=== PATIENT | female | born 1945 | race Caucasian/White ===

== ENCOUNTER 2022-04-15 09:24 | Emergency (ER) | payer OTHER, MEDICARE ==
--- OUTSIDE RECORDS SUMMARY | 2022-04-15 09:27 | XMS REPORT | Continuity of Care Document ---
:1945 Author Organization [facility] t Address [address] [place] [address] Care Team Providers Name Role Phone Unavailable Unavailable Unavailable Payers Payer Name Policy Type Policy Number Effective Date Expiration Date S ource Problems Condition Condition Condition Status Onset Resolution Last Treating Co mments Source Name Details Category Date Date Treatment Clinician Date TIA TIA Disease Active [facility] (transient (transient 5-19 [facility] ischemic ischemic 00:00: Medica l attack) attack) 00 Center Allergies, Adverse Reactions, Alerts Allergy Allergy Status Severity Reaction(s) Onset Inactive Treating Comm ents Source Name Type Date Date Clinician naproxen DA Active [facility] sodium 12-29 [place] 00:00: Orthope 00 dic [facility] Horse/Eq DA [facility] uine 12-29 [place] Containi 00:00: Orthope ng 00 dic Products Hospita l Naproxen Propensi Active [facility] adverse 00:00: Medical reaction 00 Center s Penicill Propensi Active [facility] ty to 5-19 [facility] adverse 00:00: Medical reaction 00 Center s Tetanus Propensi Active [facility] Vaccines ty to 5-19 [facility] And adverse 00:00: Medical Toxoid reaction 00 [place] [facility] NAPROXEN Allergy Active [facility] 5[facility]19 [facility] 00:[facility]: Medical 00 [place] PENICILL Allergy Active [facility] INS 5-19 [facility] 00:00: Medical 00 [place] TETANUS Allergy Active [facility] VACCINES 5-19 [facility] AND 00:00: Medical TOXOID 00 [place] naproxen DA Active [facility] 9-11 [place] 00:00: Orthope 00 dic Hospita l naproxen DA Active [facility] sodium 9-11 [facility] 00:[facility] 00 l of [place] Horse/Eq DA Active [facility] uine -11 [facility] Containi 00:00: Hospita ng 00 l of Products [place] Tetanus DA Active [facility] Diphther 04-20 [facility] 00:00: Hospita Tox,Adul 00 l of t [place] Social History Social Habit Start Date Stop Date Quantity Comments Source Alcohol intake 2015-12-30 2015-12-[address] [facility] [address] [facility] 00:00:00 00:00:00 [facility] Sex Assigned At [birth year] [facility] k[facility] 00:00:00 00:00:00 [facility] Smoking Status Start Date Stop Date Source [facility]ations Ordered Filled Start Stop Current Ordering Indication Dosage Frequency Signature Comments Components Source Medication Medication Date Date Medication? Clinician (SIG) Name Name ascorbic Yes 500mg QD Take [address] [facility] [address] acid 5-22 mg by [facility] (VITAMIN C) 16:18: mouth Medic al 500 MG 31 daily. [place] tablet calcium Yes 1{tbl} QD Take [address] [facility] citrate-vit 5-22 tablet by [facility] es payne D 16:18: mouth Medical (CITRACAL+D 31 daily. [place] ) 315-200 mg-unit per tablet cycloSPORIN Yes 1[drp] Q.5D [address] [facility] E 5-22 (two) [facility] (RESTASIS) 16:18: times Medica l 0.05 % 31 daily. [place] ophthalmic emulsion omega-3 Yes 2g QD Take [address] [facility] fatty 5-22 by mouth [facility] acids-fish 16:18: daily. Medic al oil 31 Center 340-1,000 mg Cap per capsule multivit-ir Yes Take by [facility] on-min-foli 5-22 mouth. [facility] c acid 16:18: Medical 3,500-18-0. 31 Center 4 unit-mg-mg Chew Lactobacill Yes 1{tbl} Q.5D Take [address] us 5-22 tablet by [facility] acidoph-L.b 16:18: mouth 2 Med ical ulgar 31 (two) Center (FLORANEX) times 1 million daily. cell Tab per tablet omeprazole Yes 40mg QD Take [address] (PRILOSEC) 5-22 by mouth [facility] 40 MG 16:18: daily. Medical capsule 31 Center levothyroxi Yes 50ug Take [address] [facility] ne 5-22 mcg by [facility] (SYNTHROID, 16:18: mouth Medic al LEVOTHROID) 31 Every Center 50 MCG morning on tablet an empty stomach. Procedures This patient has no known procedures. Results Test Description Test Time Test Comments Results Result Comments Source BASIC METABOLIC PANEL 2018-12-30 07:07:00 Test Item Value Reference Range Interpretation Comme nts SODIUM (test code = NA) 136 mmol/L 136-145 N POTASSIUM (test code = K) 4.1 mmol/L 3.5-5.1 N CHLORIDE (test code = CL) 100.0 mmol/L 98-107 N CARBON DIOXIDE (test code = 25.7 mmol/L 21-32 N CO2) GLUCOSE (test code = GLU) 116 mg/dL 70-110 H BLOOD UREA NITROGEN (test code 10 mg/dL 7-18 N = BUN) GLOMERULAR FILTRATION RATE 62.6 >60 U nit of measure: mL/min/1.73 (test code = GFR) [id number] Range:Healthy Adults >90 mL/m in/1.73 m2 For Chronic Kidney Disease: Stage II Mild Decreas e in GFR 60-90 Stage III Moder ate Decrease in GFR 30-59 St age IV Severe Decrease in GFR 15-29 Stage V Kidney Failure <15 CREATININE (test code = CREAT) 0.88 mg/dL 0.55-1.30 N CALCIUM (test code = CA) 8.6 mg/dL 8.2-10.1 N HGB [id number] 05:46:00 Test Item Value Reference Range Interpretation Comments HEMOGLOBIN (test code = HGB) 11.4 g/dL 12-16 L HEMATOCRIT (test code = HCT) 34.4 % 37-47 L - XR CHEST 2 [id number] 07:29:00 Patient Name: EYAD MARIO Unit No: [id number] EXAMS: CPT CODE: [id number] XR CHEST 2 [id number] PA AND LATERAL CHEST DIAGNOSIS: No evidence for active disease. COMMENT: COMPARISON: September 11, 2009 The cardiac size is within normal limits. No mediastinal masses are seen. The lungs are free of infiltrates. There is a thoracolumbar scoliosis convex right in the thorax and left in the lumbar spine with degenerative changes. at 0729 Reported and signed by: Adam Rivera MD CC: Giancarlo Andersen M.D. Technologist:Cindi Thornton RT.(R) Transcribed D/ (728) [facility] NAME: EYAD MARIO [address] [facility] PHYS: Giancarlo Vallejo MD : 1945 AGE: 73 SEX: F [place] [address] LOC: MARI PHONE #: [phone] EXAM DATE: 12/09/2018 STATUS: PRE IN FAX #: [phone] RAD #: D/C DT PAGE 1 Signed Report Patient Name: CLAUDIA MARIO Unit No: [id number] EXAMS: CPT CODE: [id number] XR CHEST 2 V 42070 (Continued) Orig Print D/T: S: 12/10/2018 (0733) [facility] [id number] [facility] MD : 1945 AGE: 73 SEX: F [place] [address] LOC: MARI PHONE #: [phone] EXAM DATE: 12/09/2018 STATUS: PRE IN FAX #: [phone] RAD #: D/C DT PAGE 2 Signed Report COMPREHENSIVE METABOLIC [id number] 18:25:00 Test Item Value Reference Range Interpretation Comments SODIUM (test code = NA) 135 mmol/L 136-145 L POTASSIUM (test code = 4.7 mmol/L 3.5-5.1 N K) CHLORIDE (test code = 97.0 mmol/L 98-107 L CL) CARBON DIOXIDE (test 30.1 mmol/L 21-32 N code = CO2) GLUCOSE (test code = 92 mg/dL 70-110 N GLU) BLOOD UREA NITROGEN 10 mg/dL 7-18 N (test code = BUN) GLOMERULAR FILTRATION 72.0 >60 Unit o f measure: RATE (test code = GFR) mL/mi n/1.73 [id number] Range:Healthy Adults >90 mL/min/1.73 m2 For Chronic Kidney Disease: Stage II Mild Decrease i n GFR 60-90 Stage III Moderate Decrea se in GFR 30-59 St age IV Severe Decre ase in GFR 15-29 St age V Kidney Failur e <15 CREATININE (test code = 0.78 mg/dL 0.55-1.30 N CREAT) TOTAL PROTEIN (test 7.4 g/dL 6.4-8.2 N code = PROT) ALBUMIN (test code = 4.2 g/dL 3.4-5.0 N ALB) GLOBULIN (test code = 3.2 g/dL 2.2-4.2 N GLOB) ALBUMIN/GLOBULIN RATIO 1.3 0.7-2.0 N (test code = A/G) CALCIUM (test code = 9.7 mg/dL 8.2-10.1 N CA) BILIRUBIN TOTAL (test 0.32 mg/dL 0.2-1.00 N code = BILT) SGOT/AST (test code = 22.0 U/L 15-37 N AST) SGPT/ALT (test code = 25.0 U/L 12-78 N Please note new ALT) normal range. ALKALINE PHOSPHATASE 74 U/L 46-116 N TOTAL (test code = ALKP) URINALYSIS [id number] 17:47:00 Test Item Value Reference Range Interpretation Comments UA COLOR (test code = COLU) YELLOW YELLOW UA APPEARANCE (test code = HAZY CLEAR APPU) UA GLUCOSE DIPSTICK (test code NEGATIVE NEGATIVE = DGLUU) UA BILIRUBIN DIPSTICK (test NEGATIVE NEGATIVE code = BILU) UA KETONE DIPSTICK (test code NEGATIVE mg/dL NEG = KETU) UA SPECIFIC GRAVITY (test code <=1.005 1.003-1.035 = SGU) UA BLOOD DIPSTICK (test code = NEGATIVE NEGATIVE BRYAN) UA PH DIPSTICK (test code = 6.5 >6.5 ANAND) UA PROTEIN DIPSTICK (test code NEGATIVE mg/dL NEG = PROU) UA UROBILINIOGEN DIPSTICK 0.2 mg/dL NORM (test code = URO) UA NITRITE DIPSTICK (test code NEGATIVE NEG = ITALO) UA LEUKOCYTE ESTERASE DIPSTICK TRACE NEGATIVE A (test code = LEUU) UA WBC (test code = WBCU) <5 /HPF 0-2 UA RBC (test code = RBCU) 0-2 /HPF 0-2 UA EPITHELIAL CELLS (test code FEW /HPF 0-2 = EPIU) UA BACTERIA (test code = BACU) 1+ /HPF NONE A CBC W/AUTO [id number] 17:18:00 Test Item Value Reference Range Interpretation Comments WHITE BLOOD CELL (test code = WBC) 5.9 K/mm3 5.8-11.0 N RED BLOOD CELL (test code = RBC) 4.51 M/mm3 4.2-5.4 N HEMOGLOBIN (test code = HGB) 13.5 g/dL 12-16 N HEMATOCRIT (test code = HCT) 39.3 % 37-47 N MEAN CELL VOLUME (test code = MCV) 87 fL 80-98 N MEAN CELL HGB (test code = MCH) 29.9 pg 27-34 N MEAN CELL HGB CONCENTRATION (test 34.4 g/dL 30.8-34.1 H code = MCHC) RED CELL DISTRIBUTION WIDTH (test 13.1 % 11-16 N code = RDW) PLT (test code = PLT) 243 K/mm3 130-400 N MEAN PLATELET VOLUME (test code = 9.9 fL 8.9-12.1 N MPV) NEUTROPHIL % (test code = NT%) 45.9 % 45-70 N LYMPHOCYTE % (test code = LY%) 42.6 % 20-40 H MONOCYTE % (test code = MO%) 9.3 % 3-10 N EOSINOPHIL % (test code = EO%) 1.7 % 1-5 N BASOPHIL % (test code = BA%) 0.3 % 0.0-1.1 N NEUTROPHIL # (test code = NT#) 2.73 K/mm3 2.00-7.50 N LYMPHOCYTE # (test code = LY#) 2.53 K/mm3 1.50-4.00 N MONOCYTE # (test code = MO#) 0.55 K/mm3 0.2-0.8 N EOSINOPHIL # (test code = EO#) 0.10 K/mm3 0.04-0.4 N BASOPHIL # (test code = BA#) 0.02 K/mm3 0.02-0.10 N MANUAL DIFF REQUIRED (test code = NO MANUAL DIFF MDIFF) NUCLEATED RED BLOOD CELL (test 0 % 0-0 N code = NRBC)
--- NOTE | 2022-04-15 11:12 | RAD REPORT ---
EXAM DESCRIPTION: CT - Head Brain Wo Cont - 04/15/2022 10:44 am CLINICAL HISTORY: pain, headache COMPARISON: Head Brain W/Wo Con dated 03/21/2020 TECHNIQUE: Axial 5 mm thick images of the head were obtained without IV contrast. All CT scans are performed using dose optimization technique as appropriate and may include automated exposure control or mA/KV adjustment according to patient size. FINDINGS: No intracranial hemorrhage, mass, edema or shift of mid-line structures. No acute cortical based infarction. No cortical edema or sulcal effacement seen. Atrophy changes are present similar t o the 2019 study. No abnormal extra-axial fluid collections. Ventricles are in proportion to the amou nt of volume loss. Cerebral white matter chronic ischemic changes are present also similar to the com parison study. Arterial tree calcifications are present. Mastoid air cells and visualized portions of the paranasal sinuses are clear. No acute bony findings. IMPRESSION: Negative noncontrast CT study for acute finding. Atrophy and chronic ischemic changes are present similar to the 2019 study.
[2022-04-15] MEDS ORDERED: MECLIZINE HCL 12.5 MG TAB ONE (11:28)
[2022-04-15 11:32] LABS: Absolute Lymphocytes (CBC) 1.2 K/uL (0.7-4.9); Hematocrit 41.9 % (36.0-45.0); Lymphocytes % 19.5 % (15.3-44.8); MCV 88.9 fL (80-100); MPV 7.1 fL (7.6-11.3); RBC Red Blood Cell Count 4.72 M/uL (3.86-4.86)
[2022-04-15 11:38] LABS: Protime INR 1.13
[2022-04-15 11:49] LABS: Albumin 4.3 g/dL (3.4-5.0); Bilirubin Direct 0.1 mg/dL (0-0.2); Bilirubin Total 0.5 mg/dL (0.2-1.0); Magnesium 2.4 mg/dL (1.8-2.4); Potassium 4.2 mmol/L (3.5-5.1); Protein, Total 8.5 g/dL (6.4-8.2)
--- NOTE | 2022-04-15 12:42 | RAD REPORT ---
EXAM DESCRIPTION: RAD - Chest Single View - 04/15/2022 12:36 pm CLINICAL HISTORY: dizzyness COMPARISON: Chest Single View dated 12/27/2015; Chest Single View dated 12/24/2015 FINDINGS: Lines: None. Lungs: No evidence of edema or pneumonia. Pleural: No significant pleural effusions or pneumothorax. Cardiac: The heart size is within normal limits. Mediastinum: Within normal limits. Bones: No acute fractures. Scoliosis. Other: None IMPRESSION: No acute cardiopulmonary disease.
--- NOTE | 2022-04-15 14:10 | RAD REPORT ---
EXAM DESCRIPTION: MRI - Brain Wo Cont - 04/15/2022 1:53 pm CLINICAL HISTORY: numbness, dizziness COMPARISON: Head Brain Wo Cont dated 04/15/2022 TECHNIQUE: Sagittal T1-weighted images were obtained along with PD/heavily T2-weighted and T2-FLAIR images. Axial DWI and ADC mapping sequences were also obtained along with coronal heavily T2-weighted images were obtained. FINDINGS: No intracranial hemorrhage, mass or acute infarction. There is no edema or shift of midlin e structures. No extra-axial fluid collections. Signal voids are seen as a normal finding in the shira r intracranial vessels. Mild T2/FLAIR hyperintense signal foci within the deep white matter. Age adva nced cerebral atrophy. Mastoid air cells and paranasal sinuses are clear. IMPRESSION: No acute intracranial abnormality. Specifically, no evidence of acute infarct. 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
[2022-04-15 15:28] LABS: Thyroid Stimulating Hormone 1.71 uIU/mL (0.360-3.740)
--- NOTE | 2022-04-15 16:22 | EDPHYS ---
Physician Documentation [facility] Name: Nathan Pierce Age: 76 yrs Sex: Female : 1945 Arrival Date: 04/15/2022 Time: 09:28 Bed 17 Private MD: Obdulia Lu ED Physician Alf Gibbs HPI: 04/15 10:09 This 76 yrs old Female presents to ER via Ambulatory with complaints of Numbness Of pm1 Face, Throat Tightness. 10:09 The patient presents to the emergency department with paresthesias of the left side of pm1 upper lip. Onset: The symptoms/episode began/occurred 9 day(s) ago. Associated signs and symptoms: The patient has no apparent associated signs or symptoms, Pertinent negatives: headache, weakness, chest pain, shortness of breath. Severity of symptoms: in the emergency department the symptoms are unchanged Pain is currently a 0 / 10. Patient's baseline: Neuro: alert and fully oriented, Motor: no deficits, Ambulation: walks without assistance, Speech: normal. Current symptoms: numbness to left upper lip. The patient has experienced similar episodes in the past, a few times, today's symptoms are similar, to previous TIA 6 years ago. The patient has not recently seen a physician. Historical: - Allergies: 10:03 tetanus serum; ll1 10:03 PENICILLINS; ll1 10:03 Naproxen; ll1 - PMHx: 10:03 GERD; osteoarthritis; Hypothyroidism; Hypertension; Colonic polyps; TIA; ll1 - Immunization history:: Client reports receiving the 2nd dose of the Covid vaccine. - Social history:: Smoking status: Patient denies any tobacco usage or history of. ROS: 10:09 Constitutional: Negative for fever, chills, and weight loss, Eyes: Negative for injury, pm1 pain, redness, and discharge, ENT: Negative for injury, pain, and discharge, Cardiovascular: Negative for chest pain, palpitations, and edema, Respiratory: Negative for shortness of breath, cough, wheezing, and pleuritic chest pain, Abdomen/GI: Negative for abdominal pain, nausea, vomiting, diarrhea, and constipation, Back: Negative for injury and pain, MS/Extremity: Negative for injury and deformity, Skin: Negative for injury, rash, and discoloration. 10:09 Neuro: Positive for numbness, of the left side of upper lip, Dizziness, room spinning, Negative for headache. 10:09 All other systems are negative. Exam: 10:09 Constitutional: This is a well developed, well nourished patient who is awake, alert, pm1 and in no acute distress. Head/Face: Normocephalic, atraumatic. Cardiovascular: Regular rate and rhythm with a normal S1 and S2. No gallops, murmurs, or rubs. Normal PMI, no JVD. No pulse deficits. Respiratory: Lungs have equal breath sounds bilaterally, clear to auscultation and percussion. No rales, rhonchi or wheezes noted. No increased work of breathing, no retractions or nasal flaring. 10:09 Skin: Warm, dry with normal turgor. Normal color with no rashes, no lesions, and no evidence of cellulitis. MS/ Extremity: Pulses equal, no cyanosis. Neurovascular intact. Full, normal range of motion. 10:09 Eyes: Exam is negative for acute changes, Periorbital structures: appear normal, Pupils: no acute changes, Extraocular movements: no acute changes, Conjunctiva: normal. 10:09 ENT: Exam is negative for acute changes, Mouth: no acute changes, Lips: normal, moist, Oral mucosa: normal, pink and intact, Voice: no acute changes. 10:09 Abdomen/GI: Exam negative for acute changes, Inspection: abdomen appears normal, Palpation: abdomen is soft and non-tender, in all quadrants. 10:09 Back: Exam negative for acute changes. 10:09 Neuro: Exam negative for acute changes, Orientation: is normal, Mentation: is normal, Cranial nerves: CN II- XII are normal as tested, Motor: no acute changes, moves all fours, strength is 5/5 in all extremities, Sensation: no obvious gross deficits, Gait: is steady, at a normal pace, without difficulty. Vital Signs: 10:02 BP 180 / 102; Pulse 95; Resp 17; Temp 97.7; Pulse Ox 100% ; ll1 11:00 BP 182 / 87; Pulse 71; Resp 16; Pulse Ox 99% on R/A; tp1 12:00 BP 165 / 91; Pulse 70; Resp 18; Pulse Ox 98% on R/A; tp1 12:45 BP 149 / 97; Pulse 82; Resp 21; Pulse Ox 98% on R/A; tp1 14:00 BP 165 / 107; Pulse 68; Resp 15; Pulse Ox 99% on R/A; tp1 14:10 BP 168 / 95; Pulse 72; Resp 13; Pulse Ox 99% on R/A; tp1 14:45 BP 139 / 80; Pulse 70; Resp 16; Pulse Ox 99% on R/A; tp1 15:30 BP 154 / 55; Pulse 74; Resp 18; Pulse Ox 100% on R/A; tp1 MDM: 10:11 Patient medically screened. pm1 16:20 Data reviewed: vital signs. Data interpreted: Pulse oximetry: on room air is 100 %. pm1 Interpretation: normal. Counseling: I had a detailed discussion with the patient and/or guardian regarding: the historical points, exam findings, and any diagnostic results supporting the discharge/admit diagnosis, lab results, radiology results, the need for outpatient follow up, to return to the emergency department if symptoms worsen or persist or if there are any questions or concerns that arise at home. 04/15 10:09 Order name: Basic Metabolic Panel pm1 04/15 10:09 Order name: CBC with Diff pm1 04/15 10:09 Order name: LFT's pm1 04/15 10:09 Order name: Magnesium pm1 04/15 10:09 Order name: NT PRO-BNP pm1 04/15 10:09 Order name: PT-INR pm1 04/15 10:09 Order name: Troponin HS pm1 04/15 11:33 Order name: CBC with Automated Diff; Complete Time: 11:34 EDMS 04/15 11:38 Order name: Protime (+INR); Complete Time: 12:08 EDMS 04/15 11:49 Order name: Basic Metabolic Panel; Complete Time: 15:42 EDMS 04/15 11:49 Order name: Liver (Hepatic) Function; Complete Time: 15:42 EDMS 04/15 11:49 Order name: Troponin High Sensitivity; Complete Time: 15:42 EDMS 04/15 11:49 Order name: NT PRO-BNP; Complete Time: 15:42 EDMS 04/15 10:09 Order name: XRAY Chest (1 view) pm1 04/15 10:09 Order name: EKG; Complete Time: 22:47 pm1 04/15 10:09 Order name: Cardiac monitoring; Complete Time: 11:22 pm1 04/15 10:09 Order name: EKG - Nurse/Tech; Complete Time: 11:55 pm1 04/15 10:09 Order name: IV Saline Lock; Complete Time: 11:22 pm1 04/15 10:09 Order name: Labs collected and sent; Complete Time: 11:22 pm1 04/15 10:09 Order name: O2 Per Protocol; Complete Time: 11:22 pm1 04/15 10:09 Order name: O2 Sat Monitoring; Complete Time: 11:22 pm1 04/15 11:12 Order name: CT; Complete Time: 11:18 EDMS 04/15 11:49 Order name: Magnesium; Complete Time: 15:42 EDMS 04/15 12:42 Order name: RAD; Complete Time: 12:48 EDMS 04/15 14:12 Order name: MRI; Complete Time: 14:22 EDMS 04/15 15:29 Order name: Thyroid Stimulating Hormone; Complete Time: 15:42 EDMS EC:47 Rate is 68 beats/min. Rhythm is regular, Normal Sinus Rhythm with No ectopy. UT pm1 interval is normal. QRS interval is normal. QT interval is normal. No Q waves. T waves are Normal. No ST changes noted. Clinical impression: Normal ECG. Administered Medications: 11:22 Drug: Meclizine 25 mg Route: PO; tp1 12:22 Follow up: Response: No adverse reaction tp1 Disposition: 18:48 Co-signature as Attending Physician, Alf Gibbs MD. rn Disposition Summary: 04/15/22 16:22 Discharge Ordered Location: Home pm1 Problem: new pm1 Symptoms: have improved pm1 Condition: Stable pm1 Diagnosis - Paresthesia of skin pm1 Followup: pm1 - With: Emergency Department - When: As needed - Reason: Worsening of condition Followup: pm1 - With: Quinten Sy MD - When: 2 - 3 days - Reason: Recheck today's complaints, Continuance of care, Re-evaluation by your physician Discharge Instructions: - Discharge Summary Sheet pm1 - Paresthesia pm1 Forms: - Medication Reconciliation Form pm1 - Thank You Letter pm1 - Antibiotic Education pm1 - Prescription Opioid Use pm1 Prescriptions: - Meclizine 25 mg Oral Tablet - take 1 tablet by ORAL route every 8 hours As needed; 30 tablet; Refills: 0, pm1 Product Selection Permitted Signatures: Dispatcher [employer] EDAlf Mcmanus MD MD rn Holden Ortiz NP SUPERVISOR [employer] pm1 Dipak Jacobs RN RN ll1 Yaneth Alanis RN RN tp1
--- NOTE | 2022-04-15 16:22 | ER ---
Nurse's Notes [facility] Name: Nathan Pierce Age: 76 yrs Sex: Female : 1945 Arrival Date: 04/15/2022 Time: 09:28 Bed 17 Private MD: Obdulia Lu Diagnosis: Paresthesia of skin Presentation: 04/15 10:02 Chief complaint: Patient states: Numbness of face and throat tightness. See Magan Ortiz ll1 note for further details. Coronavirus screen: Vaccine status: Patient reports receiving the 2nd dose of the covid vaccine. Client denies travel out of the [place] in the last 14 days. At this time, the client does not indicate any symptoms associated with coronavirus-19. Ebola Screen: Patient denies travel to an Ebola-affected area in the 21 days before illness onset. Initial Sepsis Screen: Does the patient meet any 2 criteria? No. Patient's initial sepsis screen is negative. Does the patient have a suspected source of infection? No. Patient's initial sepsis screen is negative. Risk Assessment: Do you want to hurt yourself or someone else? Patient reports no desire to harm self or others. Onset of symptoms is unknown. 10:02 Method Of Arrival: Ambulatory ll1 10:02 Acuity: CHARLEY 3 ll1 Triage Assessment: 10:04 General: Appears uncomfortable, Behavior is calm, cooperative, appropriate for age. ll1 Pain: Complains of pain in throat. EENT: Reports throat tightness, mouth feels numb. Neuro: Reports dizziness. Historical: - Allergies: 10:03 tetanus serum; ll1 10:03 PENICILLINS; ll1 10:03 Naproxen; ll1 - PMHx: 10:03 GERD; osteoarthritis; Hypothyroidism; Hypertension; Colonic polyps; TIA; ll1 - Immunization history:: Client reports receiving the 2nd dose of the Covid vaccine. - Social history:: Smoking status: Patient denies any tobacco usage or history of. Screenin:00 Abuse screen: Denies threats or abuse. Denies injuries from another. Nutritional tp1 screening: No deficits noted. Tuberculosis screening: No symptoms or risk factors identified. Fall Risk No fall in past 12 months (0 pts). No secondary diagnosis (0 pts). IV access (20 points). Ambulatory Aid- None/Bed Rest/Nurse Assist (0 pts). Gait- Normal/Bed Rest/Wheelchair (0 pts) Mental Status- Oriented to own ability (0 pts). Assessment: 11:00 General: Appears in no apparent distress. comfortable, Behavior is calm, cooperative. tp1 Pain: Denies pain. Neuro: [place] Agitation-Sedation Scale (RASS): 0 - Alert and Calm Level of Consciousness is awake, alert, obeys commands, Oriented to person, place, time, situation, Moves all extremities. Speech is normal, Facial symmetry appears normal, Pupils are PERRLA, Reports numbness in left side of lips tightness to the anterior and posterior neck. Stated she "felt out of it when driving at 0830". right side of face twitching during CT scan. . Cardiovascular: Capillary refill < 3 seconds in bilateral fingers Patient's skin is warm and dry. Respiratory: Airway is patent Respiratory effort is even, unlabored. GI: Abdomen is flat, non-distended. : No signs and/or symptoms were reported regarding the genitourinary system. EENT: No signs and/or symptoms were reported regarding the EENT system. Derm: Skin is pink, warm \\T\\ dry. Musculoskeletal: Circulation, motion, and sensation intact. 12:00 Reassessment: Patient appears in no apparent distress at this time. No changes from tp1 previously documented assessment. Patient and/or family updated on plan of care and expected duration. Pain level reassessed. Patient denies pain at this time. 13:00 Reassessment: Patient appears in no apparent distress at this time. No changes from tp1 previously documented assessment. provider at bedside. Patient denies pain at this time. 13:28 Reassessment: transported to MRI via wheelchair, escorted by [employer]. tp1 14:04 Reassessment: returned from MRI. tp1 14:12 Reassessment: Patient appears in no apparent distress at this time. Patient and/or tp1 family updated on plan of care and expected duration. Pain level reassessed. Patient is alert, oriented x 3, equal unlabored respirations, skin warm/dry/pink. CO headache, denies need for intervention. 15:45 Reassessment: Patient appears in no apparent distress at this time. No changes from tp1 previously documented assessment. Patient is alert, oriented x 3, equal unlabored respirations, skin warm/dry/pink. Patient denies pain at this time. Vital Signs: 10:02 BP 180 / 102; Pulse 95; Resp 17; Temp 97.7; Pulse Ox 100% ; ll1 11:00 BP 182 / 87; Pulse 71; Resp 16; Pulse Ox 99% on R/A; tp1 12:00 BP 165 / 91; Pulse 70; Resp 18; Pulse Ox 98% on R/A; tp1 12:45 BP 149 / 97; Pulse 82; Resp 21; Pulse Ox 98% on R/A; tp1 14:00 BP 165 / 107; Pulse 68; Resp 15; Pulse Ox 99% on R/A; tp1 14:10 BP 168 / 95; Pulse 72; Resp 13; Pulse Ox 99% on R/A; tp1 14:45 BP 139 / 80; Pulse 70; Resp 16; Pulse Ox 99% on R/A; tp1 15:30 BP 154 / 55; Pulse 74; Resp 18; Pulse Ox 100% on R/A; tp1 ED Course: 09:28 Patient arrived in ED. mr 09:29 Obdulia Lu is Private Physician. mr 09:54 Holden Ortiz NP is PHCP. pm1 09:54 Alf Gibbs MD is Attending Physician. pm1 10:03 Triage completed. ll1 10:04 Arm band placed on. ll1 11:00 Patient has correct armband on for positive identification. Placed in gown. Bed in low tp1 position. Call light in reach. Side rails up X 1. Adult w/ patient. 11:06 Yaneth Alanis RN is Primary Nurse. tp1 11:20 Inserted saline lock: 20 gauge in right antecubital area, using aseptic technique. tp1 ,using aseptic technique. inserted by Haley PRICE Blood collected. 11:55 EKG done, by ED staff. tp1 16:21 Quinten Sy MD is Referral Physician. pm1 16:34 No provider procedures requiring assistance completed. IV discontinued, intact, tp1 bleeding controlled, No redness/swelling at site. Pressure dressing applied. Administered Medications: 11:22 Drug: Meclizine 25 mg Route: PO; tp1 12:22 Follow up: Response: No adverse reaction tp1 Medication: 11:00 VIS not applicable for this client. tp1 Outcome: 16:22 Discharge ordered by MD. pm1 16:35 Discharged to home ambulatory. tp1 16:35 Condition: good 16:35 Discharge instructions given to patient, Instructed on discharge instructions, follow up and referral plans. Demonstrated understanding of instructions, follow-up care. 16:35 Patient left the ED. tp1 Signatures: Quincy Sarai Ortiz, Holden, SHANK MAKER SHANK MAKER pm1 Dipak Jacobs RN RN ll1 Yaneth Alanis RN RN tp1 Corrections: (The following items were deleted from the chart) 14:13 12:57 Reassessment: Patient appears in no apparent distress at this time. No changes tp1 from previously documented assessment. provider at bedside. Patient denies pain at this time. tp1
[2022-04-15 16:44] VITALS: TEMP 97.7
[2022-04-15 17:00] VITALS: BP 154/55; O2SAT 100
--- NOTE | 2022-04-16 12:50 | EKG ---
Test Date: 2022-04-15 Test Time: 11:47:21 [employer] Super[employer]: TP MEASUREMENT RESULTS: Intervals: Rate: 68 CT: 172 QRSD: 82 QT: 384 QTc: 408 [place]: P: 67 CT: 172 QRS: 5 T: 40 INTERPRETIVE STATEMENTS: Normal sinus rhythm Low voltage QRS Cannot rule out Anterior infarct, age undetermined Abnormal ECG Compared to ECG 12/27/2015 07:00:53 Myocardial infarct finding now present Electronically Signed On 04-16-22 12:49:23 CDT by Kem Carbajal
== END 2022-04-15 16:35 | disposition home or self-care (01) ==
LOC: ER 09:24
DX: R20.2 Paresthesia of skin (principal); I10 Essential (primary) hypertension; Z88.0 Allergy status to penicillin; Z88.5 Allergy status to narcotic agent; Z88.7 Allergy status to serum and vaccine
CPT/HCPCS: 93005; 85025; 80048; 36415; 83735; 85610; 80076; 84443; 84484; 83880; 70450; 71045; 70551; 99284; J8597